=== PATIENT | female | born 1995 | race African-American/Black ===

== ENCOUNTER 2022-03-10 11:35 | Emergency (ER) | payer OTHER ==
[~2022-03-10] VITALS: Ht 167.6 cm; Wt 61.2 kg
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
[2022-03-10] MEDS ORDERED: HYDROCODONE/APAP 5-325MG TABLET PO ONE (12:15)
--- NOTE | 2022-03-10 12:15 | NUR ---
MD at bedside, medical screening exam in process.
[2022-03-10] MEDS ORDERED: HYDROCODONE/APAP 5-325MG TABLET ONE (12:18)
[2022-03-10] MEDS ORDERED: HYDR-3972 PO (13:43)
--- NOTE | 2022-03-10 13:49 | NUR ---
Patient discharged to home in stable condition. Written and verbal after care instructions given. Patient verbalizes understanding of instructions. Stressed follow up or return to ER for worsening s/s.
== END 2022-03-10 13:50 | disposition home or self-care (01) ==
LOC: ER 11:35
DX: S06.0X0A Concussion without loss of consciousness, initial encounter (principal); R42 Dizziness and giddiness; R11.0 Nausea; S16.1XXA Strain of muscle, fascia and tendon at neck level, initial encounter; S40.011A Contusion of right shoulder, initial encounter; S63.602A Unspecified sprain of left thumb, initial encounter; V49.59XA Passenger injured in collision with other motor vehicles in traffic accident, initial encounter; Y92.410 Unspecified street and highway as the place of occurrence of the external cause
CPT/HCPCS: 70450; 73030; 73140; A4663

== ENCOUNTER 2022-03-20 07:42 | Emergency (ER) | payer OTHER ==
[~2022-03-20] VITALS: Ht 167.6 cm; Wt 61.2 kg
[~2022-03-20 07:42] MED LIST: HYDR-3972 PO
[2022-03-20] MEDS ORDERED: LIDOCAINE VISCUS 2% 15 ML UDC MM ONE (08:15)
[2022-03-20] MEDS ORDERED: MORPHINE SULFATE 2 MG/1 ML DISP.SYRIN IV ONE (08:15)
[2022-03-20] MEDS ORDERED: MAG HYDROX/AL HYDROX/SIMETH 30 ML LIQUID UDC PO ONE (08:15)
[2022-03-20] MEDS ORDERED: IV NORMAL SALINE 1000 ML BAG IV ONE (08:15)
[2022-03-20] MEDS ORDERED: ONDANSETRON 4 MG/2 ML VIAL IV ONE (08:15)
[2022-03-20] MEDS ORDERED: MORPHINE SULFATE 4 MG/1 ML DISP.SYRIN ONE (08:23)
[2022-03-20] MEDS ORDERED: ONDANSETRON 4 MG/2 ML VIAL ONE (08:23)
[2022-03-20] MEDS ORDERED: LIDOCAINE VISCUS 2% 15 ML UDC ONE (08:24)
[2022-03-20] MEDS ORDERED: MAG HYDROX/AL HYDROX/SIMETH 30 ML LIQUID UDC ONE (08:25)
[2022-03-20 08:45] LABS: MEAN CORPUSCULAR HEMOGLOBIN 31.5 uug (24.7-32.8); MEAN CORPUSCULAR VOLUME 93.6 fL (75.5-95.3); PLATELET COUNT (AUTO) 171 K/uL (179-408)
[2022-03-20 08:54] LABS: CARBON DIOXIDE 29 mmol/L (21-32); CHLORIDE 103 mmol/L (98-107); CREATININE 0.9 mg/dL (0.6-1.3); GLUCOSE 100 mg/dL (74-106); POTASSIUM 3.6 mmol/L (3.5-5.1); UREA NITROGEN, BLOOD 15 mg/dL (7-18)
[2022-03-20 09:14] LABS: ALANINE AMINOTRANSFERASE 33 U/L (14-59); ALKALINE PHOSPHATASE 59 U/L (50-136); ASPARTATE AMINOTRANSFERASE 40 U/L (15-37); BILIRUBIN,DIRECT 0.1 mg/dL (0.0-0.2); BILIRUBIN,TOTAL 0.5 mg/dL (0.2-1.0); LIPASE 46 U/L (73-393); TOTAL PROTEIN, SERUM 6.8 g/dL (6.4-8.2)
[2022-03-20] MEDS ORDERED: HYDR-3972 PO (10:34)
[2022-03-20 10:39] VITALS: BP 119/77
--- NOTE | 2022-03-20 10:39 | NUR ---
Patient discharged to home in stable condition. Written and verbal after care instructions given. Patient verbalizes understanding of instructions. Stressed follow up or return to ER for worsening s/s.pt walks in steady gait. pt not driving. pt accompanied by boy friend.
== END 2022-03-20 10:41 | disposition home or self-care (01) ==
LOC: ER 07:43
DX: R10.13 Epigastric pain (principal); S63.602A Unspecified sprain of left thumb, initial encounter; V49.50XA Passenger injured in collision with unspecified motor vehicles in traffic accident, initial encounter; Y92.410 Unspecified street and highway as the place of occurrence of the external cause; F07.81 Postconcussional syndrome
CPT/HCPCS: 29125; 36415; 71045; 73140; 74176; 76705; 80048; 80076; 83690; 84484; 84702; 85025; 93005; 96374; 96375; 99285; J2270; J2405; J7040; A4663